=== PATIENT | female | born 1935 | race Caucasian/White ===

== ENCOUNTER 2018-01-16 05:39 | Observation (INO) ==
--- NOTE | 2018-01-16 05:57 | ED ---
HPI General Chief complaint: Neuro Symptoms/Deficit Stated complaint: medical Time Seen by Provider: 01/16/18 05:50 Source: patient and EMS Mode of arrival: EMS Limitations: physical limitation (Wheelchair bound) History of Present Illness HPI narrative: 82-year-old female patient from a assisted care facility, has previous history of CVA, is wheelchair bound, diabetic, seen recently for hypoglycemic episode, here today because she was being aroused by facility staff when she appeared to have slurred speech. Patient states that she just feels generally weak. She also states that she feels like she may have some shortness of breath. She has history of COPD. She denies any chest pains, fevers, vomiting, focal numbness or weakness, or other issues. Patient was last seen normal at 11 PM last night. Related Data Home Medications Medication Instructions Recorded Confirmed aspirin 325 mg PO DAILY 01/12/18 01/16/18 atenolol 25 mg PO DAILY 01/12/18 01/16/18 coenzyme Q10 [Co Q-10] 10 mg PO DAILY 01/12/18 01/16/18 glipizide 10 mg PO DAILY 01/12/18 01/16/18 levothyroxine [Synthroid] 88 mcg PO DAILY 01/12/18 01/16/18 omeprazole 20 mg PO DAILY 01/12/18 01/16/18 potassium chloride [Klor-Con 10] 10 meq PO BID 01/12/18 01/16/18 rosuvastatin 10 mg PO HS 01/12/18 01/16/18 valsartan 80 mg PO DAILY 01/12/18 01/16/18 Lasix 40 mg PO DAILY 01/16/18 01/16/18 magnesium oxide 400 mg PO BID 01/16/18 01/16/18 pioglitazone 30 mg PO DAILY 01/16/18 01/16/18 sertraline [Zoloft] 50 mg PO DAILY 01/16/18 01/16/18 sitagliptin-metformin [Janumet] 1 tab PO BID 01/16/18 01/16/18 Allergies Allergy/AdvReac Type Severity Reaction Status Date / Time nystatin Allergy Intermediate Itching Verified 01/16/18 05:49 Penicillins Allergy Intermediate Rash Verified 01/16/18 05:49 Review of Systems Except as stated in HPI: all other systems reviewed are negative PMFSH Medical History Medical History Anemia (Acute) Anxiety (Acute) CVA (cerebral vascular accident) (Acute) Candidiasis (Acute) Candidiasis of breast (Acute) Constipation (Acute) Depression (Acute) Diabetes (Acute) GERD (gastroesophageal reflux disease) (Acute) HBP (high blood pressure) (Acute) Hyperlipemia (Acute) Hypokalemia (Acute) Hypothyroidism (Acute) Magnesium deficiency (Acute) Surgical History Surgical History Hx of appendectomy (Acute) Hx of tonsillectomy (Acute) Social History Social History Substance History: No History of Abuse Second Hand Smoke Exposure: No Smoking Status: Former smoker Tobacco Type: Cigarettes How Often Do You Have a Drink Containing Alcohol: Never Recent Travel in [facility] within the Last 8 Weeks: No Recent Out of Country Travel within the Last 8 Weeks: No Immunization History Tetanus Immunization: Unsure Hx Influenza Vaccine This Season: No Exam Narrative Exam Narrative: GENERAL: Well-developed elderly obese female patient currently and moderate distress. Awake, alert, oriented 3. SKIN: Focused skin assessment warm/dry. HEAD: Atraumatic. Normocephalic. EYES: Pupils equal and round. No scleral icterus. No injection or drainage. ENT: No nasal bleeding or discharge. Mucous membranes pink and moist. NECK: Trachea midline. No JVD. CARDIOVASCULAR: Regular rate and rhythm. No murmur appreciated. RESPIRATORY: No accessory muscle use. Clear to auscultation. Breath sounds equal bilaterally. GASTROINTESTINAL: Abdomen soft, obese, non-tender, nondistended. Hepatic and splenic margins not palpable. MUSCULOSKELETAL: No obvious deformities. No clubbing. No cyanosis. Bilateral pitting edema of the legs with erythema both legs. NEUROLOGICAL: Awake and alert. No obvious cranial nerve deficits. No upper extremity pronator drift but fairly decreased strength in both legs. Normal speech. Mild aphasia. PSYCHIATRIC: Appropriate mood and affect; insight and judgment normal. Course Initial Documented Vital Signs Temperature 98.7 F 01/16/18 05:42 Pulse Rate 75 01/16/18 05:42 Respiratory Rate 18 01/16/18 05:42 Blood Pressure 135/86 01/16/18 05:42 Pulse Oximetry 98 01/16/18 05:42 Last Documented Vital Signs Temperature 98.7 F 01/16/18 05:42 Pulse Rate 78 01/16/18 06:42 Respiratory Rate 18 01/16/18 06:42 Blood Pressure 137/77 01/16/18 06:42 Pulse Oximetry 99 01/16/18 06:42 Medical Decision Making Differential Diagnosis Differential Diagnosis: Sepsis versus dehydration versus TIA/CVA Lab Data Lab results reviewed: Yes I reviewed the patient's lab results. Result diagrams: 01/16/18 06:00 01/16/18 06:00 Lab Results 01/16/18 01/16/18 01/16/18 Range/Units 06:00 06:00 06:00 WBC 7.4 (4.0-11.0) th/mm3 RBC 3.48 L (4.00-5.30) mil/mm3 Hgb 10.5 L (11.6-15.3) gm/dL Hct 32.1 L (35.0-46.0) % MCV 92.2 (80.0-100.0) fL MCH 30.2 (27.0-34.0) pg MCHC 32.8 (32.0-36.0) % RDW 16.9 (11.6-17.2) % Plt Count 212 (150-450) th/mm3 MPV 8.4 (7.0-11.0) fL Neut % (Auto) 64.2 (16.0-70.0) % Lymph % (Auto) 19.3 (9.0-44.0) % Kidder % (Auto) 8.5 H (0.0-8.0) % Eos % (Auto) 7.4 H (0.0-4.0) % Baso % (Auto) 0.6 (0.0-2.0) % Neut # (Auto) 4.7 (1.8-7.7) th/mm3 Lymph # (Auto) 1.4 (1.0-4.8) th/mm3 Kidder # (Auto) 0.6 (0.0-0.9) th/mm3 Eos # (Auto) 0.5 H (0.0-0.4) th/mm3 Baso # (Auto) 0.0 (0.0-0.2) th/mm3 WBC Differential . Differential Comment Auto diff final PT 12.7 H (9.8-11.6) sec INR 1.3 Ratio APTT 30.9 H (24.3-30.1) sec Sodium 140 (136-145) meq/L Potassium 4.6 (3.5-5.1) meq/L Chloride 110 H (98-107) meq/L Carbon Dioxide 20.7 L (21.0-32.0) meq/L Anion Gap 9 (5-15) meq/L BUN 19 H (7-18) mg/dL Creatinine 1.37 H (0.50-1.00) mg/dL Estimated GFR 37 L (>89) mL/min Random Glucose 105 (74-106) mg/dL Calcium 8.6 (8.5-10.1) mg/dL Magnesium 1.8 (1.5-2.5) mg/dL Total Bilirubin 0.8 (0.2-1.0) mg/dL AST 13 L (15-37) U/L ALT 15 (10-53) U/L Alkaline Phosphatase 119 H (45-117) U/L Total Creatine Kinase 23 L (26-192) U/L Troponin I Less than 0.02 L (0.02-0.05) ng/mL Total Protein 6.3 L D (6.4-8.2) g/dL Albumin 3.5 (3.4-5.0) g/dL Urine Color (Yellw/Straw) Urine Clarity (Clear) Urine pH (5.0-8.5) Ur Specific [place] (1.002-1.035) Urine Protein (Neg-Trace) mg/dL Urine Glucose (UA) (Negative) mg/dL Urine Ketones (Negative) mg/dL Urine Occult Blood (Negative) Urine Nitrate (Negative) Urine Bilirubin (Negative) Urine Urobilinogen (Less than 2) mg/dL Ur Leukocyte Esterase (Negative) Urine RBC (0-3) /hpf Urine WBC (0-5) /hpf Ur Squamous Epith Cells (0-5) /hpf Urine Bacteria (None) /hpf Hyaline Casts (0-3) /lpf Micro UA Comment Urine Culture Comments Blood Type Blood Type Recheck Antibody Screen 01/16/18 01/16/18 Range/Units 06:00 06:38 WBC (4.0-11.0) th/mm3 RBC (4.00-5.30) mil/mm3 Hgb (11.6-15.3) gm/dL Hct (35.0-46.0) % MCV (80.0-100.0) fL MCH (27.0-34.0) pg MCHC (32.0-36.0) % RDW (11.6-17.2) % Plt Count (150-450) th/mm3 MPV (7.0-11.0) fL Neut % (Auto) (16.0-70.0) % Lymph % (Auto) (9.0-44.0) % Kidder % (Auto) (0.0-8.0) % Eos % (Auto) (0.0-4.0) % Baso % (Auto) (0.0-2.0) % Neut # (Auto) (1.8-7.7) th/mm3 Lymph # (Auto) (1.0-4.8) th/mm3 Kidder # (Auto) (0.0-0.9) th/mm3 Eos # (Auto) (0.0-0.4) th/mm3 Baso # (Auto) (0.0-0.2) th/mm3 WBC Differential Differential Comment PT (9.8-11.6) sec INR Ratio APTT (24.3-30.1) sec Sodium (136-145) meq/L Potassium (3.5-5.1) meq/L Chloride (98-107) meq/L Carbon Dioxide (21.0-32.0) meq/L Anion Gap (5-15) meq/L BUN (7-18) mg/dL Creatinine (0.50-1.00) mg/dL Estimated GFR (>89) mL/min Random Glucose (74-106) mg/dL Calcium (8.5-10.1) mg/dL Magnesium (1.5-2.5) mg/dL Total Bilirubin (0.2-1.0) mg/dL AST (15-37) U/L ALT (10-53) U/L Alkaline Phosphatase (45-117) U/L Total Creatine Kinase (26-192) U/L Troponin I (0.02-0.05) ng/mL Total Protein (6.4-8.2) g/dL Albumin (3.4-5.0) g/dL Urine Color Yellow (Yellw/Straw) Urine Clarity Clear (Clear) Urine pH 5.0 (5.0-8.5) Ur Specific [place] 1.009 (1.002-1.035) Urine Protein Negative (Neg-Trace) mg/dL Urine Glucose (UA) Negative (Negative) mg/dL Urine Ketones Negative (Negative) mg/dL Urine Occult Blood Negative (Negative) Urine Nitrate Negative (Negative) Urine Bilirubin Negative (Negative) Urine Urobilinogen Less than 2 (Less than 2) mg/dL Ur Leukocyte Esterase Negative (Negative) Urine RBC 1 (0-3) /hpf Urine WBC 1 (0-5) /hpf Ur Squamous Epith Cells 1 (0-5) /hpf Urine Bacteria Rare H (None) /hpf Hyaline Casts 1 (0-3) /lpf Micro UA Comment Culture not ind Urine Culture Comments Culture not ind Blood Type B Positive Blood Type Recheck Required Antibody Screen Negative Imaging Data Attestation: I personally reviewed and interpreted this imaging study as follows : Radiologist's impression: Chest X-Ray 01/16/18 05:50 CONCLUSION: Mild to moderate cardiomegaly with no definite pulmonary edema. Head CT 01/16/18 05:50 CONCLUSION: 1. No acute hemorrhage or mass effect. 2. The study is mildly degraded by motion artifact. Discharge Plan Discharge Disposition Patient Disposition: 30 Still Patient Discharge Details Diagnosis: Transient cerebral ischemia Physicians Team ED Provider: Samantha Campos Primary Care Provider: Virginia Carroll Rxs /Orders / Referrals /Forms Prescriptions: No Action pioglitazone 30 mg Tablet 30 mg PO DAILY RF: 0 sertraline [Zoloft] 50 mg Tablet 50 mg PO DAILY RF: 0 sitagliptin-metformin [Janumet] 50-1,000 mg Tablet 1 tab PO BID RF: 0 magnesium oxide 400 mg Capsule 400 mg PO BID RF: 0 Lasix 40 mg PO DAILY RF: 0 aspirin 325 mg Tablet 325 mg PO DAILY RF: 0 glipizide 10 mg Tablet 10 mg PO DAILY RF: 0 atenolol 25 mg Tablet 25 mg PO DAILY RF: 0 coenzyme Q10 [Co Q-10] 10 mg Capsule 10 mg PO DAILY RF: 0 valsartan 80 mg Tablet 80 mg PO DAILY RF: 0 potassium chloride [Klor-Con 10] 10 mEq Tablet Extended Release 10 meq PO BID RF: 0 levothyroxine [Synthroid] 88 mcg Tablet 88 mcg PO DAILY RF: 0 omeprazole 20 mg Capsule,Delayed Release(Dr/Ec) 20 mg PO DAILY RF: 0 rosuvastatin 10 mg Tablet 10 mg PO HS RF: 0 Discharge Interventions Interventions: Vital Signs Last Done: 01/16/18 06:42 Status ED Status: With Doctor
--- NOTE | 2018-01-16 06:20 | CT ---
EXAM DATE: 01/16/2018 6:17 AM EDT AGE/SEX: 82 years / Female INDICATIONS: Slurred speech and weakness. CLINICAL DATA: This is the patient's initial encounter. Patient reports that signs and symptoms have been present for 1 day and indicates a pain score of 0/10. MEDICAL/SURGICAL HISTORY: Cerebrovascular disease. Hypertension. Chronic obstructive pulmonary di sease. Diabetes GERD Appendectomy. Tonsillectomy. RADIATION DOSE: 33.72 CTDI (mGy) COMPARISON: No prior exams available for comparison. TECHNIQUE: CT of the head without contrast. Using automated exposure control and adjustment of the mA and/or kV according to patient size, radiation dose was kept as low as reasonably achievable to ob tain optimal diagnostic quality images. DICOM format image data is available electronically for revi ew and comparison. FINDINGS: There is mild motion artifact. Cerebrum: The ventricles are normal for age with mild to moderate atrophic change. No evidence of mi dline shift, mass lesion, hemorrhage or acute infarction. No extraaxial fluid collections are seen. Posterior Fossa: The cerebellum and brainstem are intact. The 4th ventricle is midline. The cerebe llopontine angle is unremarkable. Extracranial: The visualized portion of the orbits is intact. Skull: The calvaria is intact. No evidence of skull fracture. CONCLUSION: 1. No acute hemorrhage or mass effect. 2. The study is mildly degraded by motion artifact. Electronically signed by: Nima Garcia MD 01/16/2018 6:19 AM EDT
[2018-01-16 06:21] LABS: Baso % (Auto) 0.6 % (0.0-2.0); Eos # (Auto) 0.5 th/mm3 (0.0-0.4); Eos % (Auto) 7.4 % (0.0-4.0); Hematocrit 32.1 % (35.0-46.0); Hemoglobin 10.5 gm/dL (11.6-15.3); Lymph # (Auto) 1.4 th/mm3 (1.0-4.8); Lymph % (Auto) 19.3 % (9.0-44.0); Mean Corpuscular HGB Conc 32.8 % (32.0-36.0); Mean Corpuscular Hemoglobin 30.2 pg (27.0-34.0); Mean Corpuscular Volume 92.2 fL (80.0-100.0); Mean Platelet Volume 8.4 fL (7.0-11.0); Mono # (Auto) 0.6 th/mm3 (0.0-0.9); Mono % (Auto) 8.5 % (0.0-8.0); Neut # (Auto) 4.7 th/mm3 (1.8-7.7); Neut % (Auto) 64.2 % (16.0-70.0); Platelet Count 212 th/mm3 (150-450); Red Blood Count 3.48 mil/mm3 (4.00-5.30); Red Cell Distribution Width 16.9 % (11.6-17.2); White Blood Count 7.4 th/mm3 (4.0-11.0)
--- NOTE | 2018-01-16 06:21 | XR ---
EXAM DATE: 01/16/2018 6:11 AM EDT AGE/SEX: 82 years / Female INDICATIONS: Shortness of breath CLINICAL DATA: This is the patient's initial encounter. Patient reports that signs and symptoms have been present for 1 day and indicates a pain score of 0/10. MEDICAL/SURGICAL HISTORY: None. None. COMPARISON: [facility] [place], CHEST 1V SINGLE AP, 01/12/2018. . FINDINGS: A single AP portable erect view the chest was obtained and demonstrates mild to moderate cardiomegaly with no confluent infiltrates or effusions. The bony thorax remains intact with multiple overlying e lectrocardiogram leads. CONCLUSION: Mild to moderate cardiomegaly with no definite pulmonary edema. Electronically signed by: Nima Garcia MD 01/16/2018 6:20 AM EDT
[2018-01-16 06:33] LABS: Activated Partial Thrombo Time 30.9 sec (24.3-30.1); INR 1.3 Ratio; Prothrombin Time 12.7 sec (9.8-11.6)
[2018-01-16 06:49] LABS: Alanine Aminotransferase 15 U/L (10-53); Albumin 3.5 g/dL (3.4-5.0); Anion Gap 9 meq/L (5-15); Aspartate Aminotransferase 13 U/L (15-37); Blood Urea Nitrogen 19 mg/dL (7-18); Calcium 8.6 mg/dL (8.5-10.1); Carbon Dioxide 20.7 meq/L (21.0-32.0); Chloride 110 meq/L (98-107); Glomerular Filtration Rate 37 mL/min (>89); Glucose,Random 105 mg/dL (74-106); Magnesium 1.8 mg/dL (1.5-2.5); Potassium 4.6 meq/L (3.5-5.1); Sodium 140 meq/L (136-145)
[2018-01-16 06:53] LABS: Alkaline Phosphatase 119 U/L (45-117); Total Protein 6.3 g/dL (6.4-8.2)
[2018-01-16 07:17] LABS: Creatine Kinase 23 U/L (26-192)
[2018-01-16 07:28] LABS: Bacteria,Urine Rare /hpf; Bilirubin,Urine Negative (Negative); Color,Urine Yellow (Yellw/Straw); Glucose,Urine (UA) Negative (Negative); Hyaline Casts,Urine 1 /lpf (0-3); Leukocyte Esterase,Urine Negative (Negative); Nitrite,Urine Negative (Negative); Specific Gravity,Urine 1.009 (1.002-1.035); Squamous Epithelial Cell,Urine 1 /hpf (0-5)
[2018-01-16 07:32] LABS: Clarity,Urine Clear (Clear)
[2018-01-16] MEDS ORDERED: Temazepam 15 MG Capsule PO PRN (08:13)
[2018-01-16] MEDS ORDERED: Bisacodyl 10 MG Supp RECTAL PRN (08:13)
[2018-01-16] MEDS ORDERED: Sod Chloride 0.9% Inj 1,000 ML IV.CONT SCH (08:15)
[2018-01-16] MEDS: Senna/Docusate Sodium 8.6/50 MG Tablet PO SCH ×2 (09:18→21:13)
--- NOTE | 2018-01-16 10:42 | MB ---
cc: Albino Loja MD DATE: 01/16/2018 HISTORY OF PRESENT ILLNESS: The patient is an 82-year-old right-handed woman, [id number], with a history [id number] diabetes, hypercholesterolemia, atrial fibrillation in the past, hypothyroidism, melanoma on her scan, but no mets. She has been in a wheelchair for the last 14 years after she hurt her ankle. She is not sure why, not due to pain. She lives in assisted living. Her son evidently from alcoholism. She had some depression. She comes in because she has been weak all over. She was in the hospital just a few days ago, saying she was weak all over, and evidently had a hypoglycemic episode. She was aroused by facility staff. They thought she had some slurred speech. She did not note that herself. There is a history of COPD. MEDICATIONS AT HOME: 1. She is on 325 aspirin. 2. Atenolol. 3. Coenzyme Q10. 4. Glipizide. 5. Synthroid. 6. Omeprazole. 7. Rosuvastatin. 8. Valsartan. 9. Lasix. 10. Zoloft 50 a day. 11. Janumet. 12. Magnesium oxide. ALLERGIES: NYSTATIN AND PENICILLIN. PAST MEDICAL HISTORY: Written down as stroke, candidiasis, anxiety, anemia, constipation, depression, non-insulin diabetes, high blood pressure, hyperlipidemia, hypokalemia, hypothyroidism, magnesium deficiency. SOCIAL HISTORY: Not a smoker or drinker. Lives in assisted living. FAMILY HISTORY: Negative for cancer, seizure, stroke. REVIEW OF SYSTEMS: She denied to me any hypertension, PA, renal, hepatic, pulmonary disease, although obviously some COPD. No history of lupus, ulcer, seizure. She denied any history of stroke, though it is written in her chart here. She does not have an old chart here from the [facility] system. She was here on 01/12/2018, although I do not see a doctor's note from that. PHYSICAL EXAMINATION: VITAL SIGNS: Afebrile, 76, 18, 116/65. NECK: There are no carotid bruits. HEART: Regular rate and rhythm. I do not detect a murmur. EKG and telemetry looks to be atrial flutter. NEUROLOGIC: Pupils are equal. Visual sargent are full. Extraocular movements intact without nystagmus. Face is symmetric with normal sensation. Tongue was midline. There is no drift. She has normal strength in upper and lower extremities bilaterally including iliopsoas, quadriceps, tibialis anterior, gastroc. She got some erythema to the distal legs bilaterally and some edema there also, about 1+ bilateral distal lower extremities and ankles. Pinprick was intact throughout including the toes, face and arms and hands bilaterally. DTRs are absent throughout. She is not ataxic on donwqp-lz-lian or hlo-jq-ctlatc. Speech is slow. She is not aphasic. Knew the month and the year. LABORATORY DATA: CBC is normal. UA is negative. Basic metabolic profile, creatinine 1.37, otherwise normal. Glucose 114. LFTs normal. Troponin negative. Coags were normal. CAT scan of the brain done on this admission is negative. Review of the films does appear to be normal. Chest x-ray: Some cardiomegaly. ASSESSMENT AND PLAN: What appears to be some atrial flutter and she should be anticoagulated. Her CHADS score is high enough. We will check an MRI of the brain. Eliquis could be started by the med team. I would stop her aspirin. Consider having Cardiology see her for the atrial fibrillation. Check an echo and MRI, some additional blood work. Consult physical therapy. It is unclear to me why she is not actually walking for the last 14 years and she does not know either, but she has good strength in her legs. Also, check her LDL. MD DEVIN Kendall/verena/nancy , 09:49 AM , 09:58 AM
[2018-01-16] MEDS ORDERED: Gadobutrol PF 10 MMOL/10 ML Vial (for RAD) IV.SIG ONE (11:48)
--- NOTE | 2018-01-16 11:52 | MR ---
EXAM DATE: 01/16/2018 11:49 AM EDT AGE/SEX: 82 years / Female INDICATIONS: Slurred speech. CLINICAL DATA: This is the patient's subsequent encounter. Patient reports that signs and symptoms h ave been present for 2 days and indicates a pain score of 0/10. MEDICAL/SURGICAL HISTORY: Diabetes mellitus type II. Hypertension. Hypothyroidism. Appendecto my. Tonsillectomy. COMPARISON: No prior exams available for comparison. TECHNIQUE: 3D [id number] MRA was performed. Source images, multiplanar STS MIP, and 3D volum e MIP reconstructions were reviewed. FINDINGS: There is excellent visualization of the major intracranial arteries out to the second-order branch ve ssels. There is no evidence for aneurysm, vessel truncation or stenosis, and no evidence for vascula r malformation. There is a patent right posterior communicating artery. CONCLUSION: 1. Unremarkable MRA of the brain. Electronically signed by: Paco Dubois MD 01/16/2018 11:51 AM EDT
--- NOTE | 2018-01-16 11:54 | MR ---
EXAM DATE: 01/16/2018 11:49 AM EDT AGE/SEX: 82 years / Female INDICATIONS: . Slurred speech. CLINICAL DATA: This is the patient's subsequent encounter. Patient reports that signs and symptoms h ave been present for 2 days and indicates a pain score of 0/10. MEDICAL/SURGICAL HISTORY: Diabetes mellitus type II. Hypothyroidism. Hypertension. Appendecto my. Tonsillectomy. COMPARISON: No prior exams available for comparison. TECHNIQUE: 10 ml Gadavist (gadobutrol) contrast infused MRA (single exam dose) of the extracranial circulation was performed using a neurovascular coil. Postprocessing was performed, including rotati ng sub-volume maximum intensity projections of each carotid artery, rotating full-volume maximum inte nsity projections of both carotid arteries, sagittal and coronal sliding thin-slab reformations of ea ch carotid artery, and left oblique sliding thin-slab reformation through the aortic arch to include the origin of the arch branch vessels. FINDINGS: Aortic Arch : There is a three-vessel origin of the great vessels from the aorta. No evidence of o stial narrowing. Right Carotid : The common carotid artery is intact. The carotid bulb has a normal configuration wi thout ulceration or narrowing. The internal carotid artery lumen is smooth without stenosis. The ex ternal carotid artery is intact. Left Carotid : The common carotid artery is intact. The carotid bulb has a normal configuration wit hout ulceration or narrowing. The internal carotid artery lumen is smooth without stenosis. The ext ernal carotid artery is intact. Vertebrals : The vertebral arteries have a symmetric diameter. No stenotic lesions are seen. CONCLUSION: 1. Unremarkable MRA of the carotids. Percent stenosis is calculated using the diameter of the stenotic region over the diameter of the nor mal distal internal carotid artery Electronically signed by: Paco Dubois MD 01/16/2018 11:53 AM [facility]
--- NOTE | 2018-01-16 12:13 | MR ---
EXAM DATE: 01/16/2018 11:57 AM EDT AGE/SEX: 82 years / Female INDICATIONS: Slurred speech. CLINICAL DATA: This is the patient's subsequent encounter. Patient reports that signs and symptoms h ave been present for 2 days and indicates a pain score of 0/10. MEDICAL/SURGICAL HISTORY: Diabetes mellitus type II. Hypothyroidism. Hypertension. Appendecto my. Tonsillectomy. [place] [facility] [place]. . TECHNIQUE: Multiplanar, multisequence examination of the brain was performed without and with 10 ml G adavist (gadobutrol) contrast as a single exam dose. FINDINGS: Cerebrum: The ventricles and cortical sulci are widened. There are some expansion of the extra axial spaces. No evidence of midline shift, hemorrhage or acute infarction. There is a 1 cm extra-axial mass seen in the anterior right frontal region. This enhances and likely represents a meningioma. No underlying mass effect is seen. No extraaxial fluid collections are seen. The pituitary gland and novoa prasellar cistern are normal in configuration. White Matter: There are focal and confluent areas of increased signal seen in the cerebral and ponti ne white matter. Posterior Fossa: The cerebellum and brainstem are intact. The 4th ventricle is midline. The cerebel lopontine angle is unremarkable. The cerebellar tonsils are normal in position. Diffusion Imaging: No focal areas of restricted diffusion are seen. No evidence of acute infarction . Extracranial: The visualized portions of the orbits and paranasal sinuses are unremarkable. Post Contrast: There is enhancement of the presumed meningioma at the anterior right frontal lobe. O therwise, no abnormal areas of parenchymal or dural enhancement. No evidence of blood-brain barrier breakdown. CONCLUSION: 1. No acute abnormality is seen. 2. Atrophy. 3. Areas of demyelination. This is nonspecific. It may be secondary to small vessel ischemic change. 4. 1 cm suspected meningioma without mass effect at the anterior right frontal region. Electronically signed by: Jeremiah Gastelum MD 01/16/2018 12:11 PM EDT
--- NOTE | 2018-01-16 13:43 | ECG ---
Date Performed: 01/16/2018 Time Performed: 05:44:24 PTAGE: 82 years EKG: ATRIAL FIBRILLATION LOW QRS VOLTAGE IN EXTREMITY LEADS POSSIBLE ANTERIOR MYOCARDIAL INFARCT ION INFERIOR MYOCARDIAL INFARCTION ABNORMAL ECG Since the PREVIOUS TRACING , no significant change noted PREVIOUS TRACIN01/12/2018 10.21 DOCTOR: Orlando Templeton Interpretating Date/Time 01/16/2018 13:42:04
[2018-01-16 14:39] LABS: Chol/HDL Ratio 1.85 Ratio; HDL Cholesterol 51.7 mg/dL (40.0-60.0); Thyroid Stimulating Hormone 3.14 uIU/mL (0.358-3.740)
[2018-01-16 14:58] LABS: Vitamin B12 338 pg/mL (193-986)
[2018-01-16] MEDS ORDERED: Dextrose 50% in Water 50 ML Vial IV.PUSH PRN (15:10)
--- NOTE | 2018-01-16 15:11 | P.HP ---
History of Present Illness Service: Hospitalist Primary Care Physician: Virginia Carroll MD Chief Complaint: Slurred speech History of Present Illness: Ms. Gupta is a pleasant morbidly obese 82-year-old female with a history of atrial fibrillation, hypothyroidism, hyperlipidemia, diabetes mellitus who presented to the emergency department from assisted living facility due to slurred speech. Patient also reports that she was not able to move from her bed at all. Normally she is able to transfer herself from her bed to the commode and short distance like that. Overall she has been feeling much weaker than her baseline. She denies any chest pain, shortness of breath, fever or chills. Denies any changes in bowel or bladder habits. At the time of this interview, patient reports baseline speech. Her daughter is at bedside. They both deny any focal neurological deficit. However she complains of persistent generalized weakness that is worse than her baseline. - Diagnosis (1) Generalized weakness (2) Morbidly obese (3) Diabetes mellitus Inpatient Certification: I certify that the inpatient services were ordered in accordance with Medicare regulations governing the order. This includes certification that hospital inpatient services are reasonable and necessary and in the case of services not specified as inpatient-only under 42 CFR 419.22(n), that they are appropriately provided as inpatient services in accordance to with the 2-midnight benchmark under 43 CFR 412.3(e) Review of Systems All other systems reviewed negative except as stated in HPI [facility] - History History Provided By: Patient, Medical Record, Grader Tender / EMT - Medical History Medical History: Medical History (Last Reviewed 01/16/18 @ 09:14 by Miguelangel Barone) Anemia Anxiety CVA (cerebral vascular accident) Candidiasis Candidiasis of breast Constipation Depression Diabetes GERD (gastroesophageal reflux disease) HBP (high blood pressure) Hyperlipemia Hypokalemia Hypothyroidism Magnesium deficiency - Surgical History Surgical History: Surgical History (Last Reviewed 01/16/18 @ 09:14 by Miguelangel Barone) Hx of appendectomy Hx of tonsillectomy - Tobacco History Second Hand Smoke Exposure: No Smoking Status: Former smoker Tobacco Type: Cigarettes - Alcohol History How Often Do You Have a Drink Containing Alcohol: Never - Substance Use History Substance History: No History of Abuse - Travel History Recent Travel in the [place] Within the Last 8 Weeks: No Recent Travel Out of the Country Within the Last 8 Weeks: No - Immunization History Tetanus Immunization: Unsure Hx Influenza Vaccine This Season: No Medications and Allergies Active Medications: Active Medications Al Hydroxide/Mg Hydroxide (Milk Of Magnesia Liq) 30 ml PO Q12H PRN PRN Reason: Mild Constipation Apixaban (Eliquis) 5 mg PO BID [facility] Bisacodyl (Dulcolax Supp) 10 mg RECTAL DAILY PRN PRN Reason: SEVERE CONSITIPATION Lactulose (Lactulose Liq) 30 ml PO DAILY PRN PRN Reason: SEVERE CONSITIPATION Metoprolol Tartrate (Lopressor) 25 mg PO BID [facility] Senna/Docusate Sodium (Lupe-Colace) 1 tab PO BID [facility] Last Admin: 01/16/18 09:18 Dose: 1 tab Sennosides (Senokot) 17.2 mg PO Q12H PRN PRN Reason: Moderate Constipation Sodium Chloride (Ns Flush) 2 ml IV.FLUSH PRN PRN PRN Reason: FLUSH AFTER USING IV ACCESS Last Admin: 01/16/18 09:18 Dose: 2 ml Temazepam (Restoril) 15 mg PO HS PRN PRN Reason: INSOMNIA Allergies Allergy/AdvReac Type Severity Reaction Status Date / Time nystatin Allergy Intermediate Itching Verified 01/16/18 05:49 Penicillins Allergy Intermediate Rash Verified 01/16/18 05:49 Home Medications Medication Instructions Recorded Confirmed Type aspirin 325 mg PO DAILY 01/12/18 01/16/18 History atenolol 25 mg PO DAILY 01/12/18 01/16/18 History coenzyme Q10 [Co Q-10] 10 mg PO DAILY 01/12/18 01/16/18 History glipizide 10 mg PO DAILY 01/12/18 01/16/18 History levothyroxine [Synthroid] 88 mcg PO DAILY 01/12/18 01/16/18 History omeprazole 20 mg PO DAILY 01/12/18 01/16/18 History potassium chloride [Klor-Con 10] 10 meq PO BID 01/12/18 01/16/18 History rosuvastatin 10 mg PO HS 01/12/18 01/16/18 History valsartan 80 mg PO DAILY 01/12/18 01/16/18 History Lasix 40 mg PO DAILY 01/16/18 01/16/18 History magnesium oxide 400 mg PO BID 01/16/18 01/16/18 History pioglitazone 30 mg PO DAILY 01/16/18 01/16/18 History sertraline [Zoloft] 50 mg PO DAILY 01/16/18 01/16/18 History sitagliptin-metformin [Janumet] 1 tab PO BID 01/16/18 01/16/18 History Exam Vital signs: Vital Signs 01/16/18 05:42 01/16/18 05:50 01/16/18 06:42 Temperature 98.7 F Pulse Rate 75 78 Respiratory Rate 18 18 Blood Pressure 135/86 137/77 Pulse Oximetry 98 100 99 01/16/18 08:13 01/16/18 09:07 01/16/18 10:00 Temperature 97.8 F 97.9 F Pulse Rate 76 77 74 Respiratory Rate 18 18 Blood Pressure 116/65 137/64 Pulse Oximetry 98 98 01/16/18 12:23 01/16/18 13:45 Temperature 98.1 F 97.8 F Pulse Rate 74 70 Respiratory Rate 20 18 Blood Pressure 130/60 124/77 Pulse Oximetry 100 Intake & Output 01/15/18 01/16/18 01/16/18 18:59 06:59 18:59 Weight 124.738 kg Narrative: GENERAL: Alert, oriented 3, NAD. Morbidly obese. SKIN: No rashes, ecchymoses or lesions. Warm and dry. There is some thickening of skin on her lower abdomen. No erythema noted. HEAD: Atraumatic. Normocephalic. No temporal or scalp tenderness. EYES: Pupils equal round and reactive. No injection or drainage. ENT: Nose without bleeding, purulent drainage or septal hematoma. Airway patent. NECK: Trachea midline. No lymphadenopathy. Supple, nontender, no meningeal signs. CARDIOVASCULAR: Regular rate and rhythm without murmurs, gallops, or rubs. No JVD. RESPIRATORY: Clear to auscultation. Breath sounds equal bilaterally. No wheezes , rales, or rhonchi. GASTROINTESTINAL: Abdomen soft, non-tender, nondistended. No guarding. MUSCULOSKELETAL: Extremities without clubbing, cyanosis, or edema. There is some erythema on her lower extremities which is chronic. NEUROLOGICAL: Awake and alert. Cranial nerves II through XII intact. No focal neurological deficits. Normal speech. Results - Labs CBC & Chem 7: 01/16/18 06:00 01/16/18 06:00 Labs: Laboratory Results - last 24 hr 01/16/18 01/16/18 01/16/18 06:00 06:00 06:00 WBC 7.4 RBC 3.48 L Hgb 10.5 L Hct 32.1 L MCV 92.2 MCH 30.2 MCHC 32.8 RDW 16.9 Plt Count 212 MPV 8.4 Neut % (Auto) 64.2 Lymph % (Auto) 19.3 [place] % (Auto) 8.5 H Eos % (Auto) 7.4 H Baso % (Auto) 0.6 Neut # (Auto) 4.7 Lymph # (Auto) 1.4 [place] # (Auto) 0.6 Eos # (Auto) 0.5 H Baso # (Auto) 0.0 WBC Differential . Differential Comment Auto diff final PT 12.7 H INR 1.3 APTT 30.9 H Sodium 140 Potassium 4.6 Chloride 110 H Carbon Dioxide 20.7 L Anion Gap 9 BUN 19 H Creatinine 1.37 H Estimated GFR 37 L POC Glucose Random Glucose 105 Calcium 8.6 Magnesium 1.8 Total Bilirubin 0.8 AST 13 L ALT 15 Alkaline Phosphatase 119 H Total Creatine Kinase 23 L Troponin I Less than 0.02 L Total Protein 6.3 L D Albumin 3.5 Triglycerides Cholesterol LDL Cholesterol, Calc HDL Cholesterol Cholesterol/HDL Ratio TSH Urine Color Urine Clarity Urine pH Ur Specific [place] Urine Protein Urine Glucose (UA) Urine Ketones Urine Occult Blood Urine Nitrate Urine Bilirubin Urine Urobilinogen Ur Leukocyte Esterase Urine RBC Urine WBC Ur Squamous Epith Cells Urine Bacteria Hyaline Casts Micro UA Comment Urine Culture Comments Rheumatoid Factor Scrn Rheumatoid Factor Titer Blood Type Blood Type Recheck Antibody Screen 01/16/18 01/16/18 01/16/18 06:00 06:38 09:16 WBC RBC Hgb Hct MCV MCH MCHC RDW Plt Count MPV Neut % (Auto) Lymph % (Auto) [place] % (Auto) Eos % (Auto) Baso % (Auto) Neut # (Auto) Lymph # (Auto) [place] # (Auto) Eos # (Auto) Baso # (Auto) WBC Differential Differential Comment PT INR APTT Sodium Potassium Chloride Carbon Dioxide Anion Gap BUN Creatinine Estimated GFR POC Glucose 114 H Random Glucose Calcium Magnesium Total Bilirubin AST ALT Alkaline Phosphatase Total Creatine Kinase Troponin I Total Protein Albumin Triglycerides Cholesterol LDL Cholesterol, Calc HDL Cholesterol Cholesterol/HDL Ratio TSH Urine Color Yellow Urine Clarity Clear Urine pH 5.0 Ur Specific [place] 1.009 Urine Protein Negative Urine Glucose (UA) Negative Urine Ketones Negative Urine Occult Blood Negative Urine Nitrate Negative Urine Bilirubin Negative Urine Urobilinogen Less than 2 Ur Leukocyte Esterase Negative Urine RBC 1 Urine WBC 1 Ur Squamous Epith Cells 1 Urine Bacteria Rare H Hyaline Casts 1 Micro UA Comment Culture not ind Urine Culture Comments Culture not ind Rheumatoid Factor Scrn Rheumatoid Factor Titer Blood Type B Positive Blood Type Recheck Required Antibody Screen Negative 01/16/18 01/16/18 01/16/18 13:08 13:08 13:32 WBC RBC Hgb Hct MCV MCH MCHC RDW Plt Count MPV Neut % (Auto) Lymph % (Auto) [place] % (Auto) Eos % (Auto) Baso % (Auto) Neut # (Auto) Lymph # (Auto) [place] # (Auto) Eos # (Auto) Baso # (Auto) WBC Differential Differential Comment PT INR APTT Sodium Potassium Chloride Carbon Dioxide Anion Gap BUN Creatinine Estimated GFR POC Glucose 110 Random Glucose Calcium Magnesium Total Bilirubin AST ALT Alkaline Phosphatase Total Creatine Kinase Troponin I Total Protein Albumin Triglycerides 63 Cholesterol 96 L LDL Cholesterol, Calc 32 HDL Cholesterol 51.7 Cholesterol/HDL Ratio 1.85 TSH 3.140 Urine Color Urine Clarity Urine pH Ur Specific [place] Urine Protein Urine Glucose (UA) Urine Ketones Urine Occult Blood Urine Nitrate Urine Bilirubin Urine Urobilinogen Ur Leukocyte Esterase Urine RBC Urine WBC Ur Squamous Epith Cells Urine Bacteria Hyaline Casts Micro UA Comment Urine Culture Comments Rheumatoid Factor Scrn Negative Rheumatoid Factor Titer Not Reportable Blood Type Blood Type Recheck Antibody Screen - Imaging Impressions Head MRI 01/16/18 00:00 CONCLUSION: 1. No acute abnormality is seen. 2. Atrophy. 3. Areas of demyelination. This is nonspecific. It may be secondary to small vessel ischemic change. 4. 1 cm suspected meningioma without mass effect at the anterior right frontal region. Chest X-Ray 01/16/18 05:50 CONCLUSION: Mild to moderate cardiomegaly with no definite pulmonary edema. Head CT 01/16/18 05:50 CONCLUSION: 1. No acute hemorrhage or mass effect. 2. The study is mildly degraded by motion artifact. Neck MRA 01/16/18 07:37 CONCLUSION: 1. Unremarkable MRA of the carotids. Percent stenosis is calculated using the diameter of the stenotic region over the diameter of the normal distal internal carotid artery Head MRA 01/16/18 07:39 CONCLUSION: 1. Unremarkable MRA of the brain. Caprinsteffanie VTE Risk Assessment Deniz VTE Risk Assessment: Moderate/High Risk (score >= 2) Deniz Risk Assessment Model: Point Value = 1 Point Value = 2 Point Value = 3 Point Value = 5 Age 41-60 Minor surgery BMI > 25 kg/m2 Swollen legs Varicose veins or History of unexplained or recurrent spontaneous Oral contraceptives or hormone replacement Sepsis (< 1 month) Serious lung disease, including pneumonia (< 1 month) Abnormal pulmonary function Acute myocardial infarction Congestive heart failure (< 1 month) History of inflammatory bowel disease Medical patient at bed rest Age 61-74 Arthroscopic surgery Major open surgery (> 45 min) Laparoscopic surgery (> 45 min) Malignancy Confined to bed (> 72 hours) Immobilizing plaster cast Central venous access Age >= 75 History of VTE Family history of VTE Factor V Leiden Prothrombin [id number] Lupus anticoagulant Anticardiolipin antibodies Elevated serum homocysteine Heparin-induced thrombocytopenia Other congenital or acquired thrombophilia Stroke (< 1 month) Elective arthroplasty Hip, pelvis, or leg fracture Acute spinal cord injury (< 1 month) Prophylaxis Regimen: Total Risk Factor Score Risk Level Prophylaxis Regimen 0-1 Low Early ambulation 2 Moderate Order ONE of the following: *Sequential Compression Device (SCD) *Heparin 5000 units SQ BID 3-4 Higher Order ONE of the following medications: *Heparin 5000 units SQ TID *Enoxaparin/Lovenox 40 mg SQ daily (WT < 150 kg, CrCl > 30 mL/min) *Enoxaparin/Lovenox 30 mg SQ daily (WT < 150 kg, CrCl > 10-29 mL/min) *Enoxaparin/Lovenox 30 mg SQ BID (WT < 150 kg, CrCl > 30 mL/min) AND/OR *Sequential Compression Device (SCD) 5 or more Highest Order ONE of the following medications: *Heparin 5000 units SQ TID (Preferred with Epidurals) *Enoxaparin/Lovenox 40 mg SQ daily (WT < 150 kg, CrCl > 30 mL/min) *Enoxaparin/Lovenox 30 mg SQ daily (WT < 150 kg, CrCl > 10-29 mL/min) *Enoxaparin/Lovenox 30 mg SQ BID (WT < 150 kg, CrCl > 30 mL/min) AND *Sequential Compression Device (SCD) Assessment and Plan - Assessment (1) Generalized weakness Code(s): R53.1 - Weakness Status: Acute (2) Morbidly obese Code(s): E66.01 - Morbid (severe) obesity due to excess calories Status: Acute (3) Diabetes mellitus Code(s): E11.9 - Type 2 diabetes mellitus without complications Status: Acute - Plan Ms. Gupta is a pleasant 82-year-old morbidly obese female with a history of hyperlipidemia, diabetes mellitus who presents to the emergency department today due to worsening of her generalized weakness, suspected slurred speech. Neurology was consulted. Possible TIA -Radiological studies including MRI and MRA are largely unremarkable for any acute findings. -Appreciate neurology input. We are waiting for echocardiogram. -Physical therapy recommends home with home health. -Continue apixaban 5 mg twice daily. Also continue Crestor 10 mg nightly. Diabetes mellitus -Patient's blood glucose was in the 110s range. She is on Janumet, glipizide , Pioglitazone at home. -Patient's home regimen is concerning for episodes of hypoglycemia which she had recently. -We will hold off p.o. hypoglycemic medications. Hold off using metformin due to GFR 37. -Upon discharge consider low-dose glimepiride monotherapy for diabetes mellitus. -During this hospitalization we will continue sliding scale insulin only. Hypertension Hyperlipidemia -We will hold off using valsartan. Start amlodipine 5 mg daily. Currently normotensive. -Continue Crestor 10 mg nightly. Atrial fibrillation -DC home medication atenolol. Start metoprolol 25 mg twice daily. -Also start patient on apixaban 5 mg twice daily. Full code. Apixaban. Discharge plan: We admitted patient under observation. Discussed with Obs unit CM who discussed with patient/family. They would like to consider a different SNF other than [facility]. Patient can likely be discharged on 01/17/2018.
[2018-01-16] MEDS: Insulin NovoLOG Aspart Correctional Sugar Inj SQ SCH ×2 (17:15→21:00)
[2018-01-16] MEDS: Metoprolol Tartrate 25 MG Tablet PO SCH (21:13)
[2018-01-17] MEDS: Levothyroxine 88 MCG Tablet PO SCH (07:11)
--- NOTE | 2018-01-17 07:18 | P.PNNEU ---
Subjective Subjective Comments: No acute events reported No headache No chest pain No dyspnea Active Medications: Active Medications Al Hydroxide/Mg Hydroxide (Milk Of Magnesia Liq) 30 ml PO Q12H PRN PRN Reason: Mild Constipation Amlodipine Besylate (Norvasc) 5 mg PO DAILY [facility] Apixaban (Eliquis) 5 mg PO BID [facility] Last Admin: 01/16/18 21:13 Dose: 5 mg Atorvastatin Calcium (Lipitor) 20 mg PO HS [facility] Last Admin: 01/16/18 21:13 Dose: 20 mg Bisacodyl (Dulcolax Supp) 10 mg RECTAL DAILY PRN PRN Reason: SEVERE CONSITIPATION Dextrose (D50w Vial) 50 ml IV.PUSH UNSCH PRN PRN Reason: PER HYPOGLYCEMIA PROTOCOL Glucagon (Glucagon Inj) 1 mg OTHER PRN PRN PRN Reason: for Hypoglycemia Protocol Insulin Aspart (Novolog Insulin Correctional Sugar Inj) 0 unit SQ [facility]; Protocol Last Admin: 01/16/18 21:00 Dose: Not Given Lactulose (Lactulose Liq) 30 ml PO DAILY PRN PRN Reason: SEVERE CONSITIPATION Levothyroxine Sodium (Synthroid) 88 mcg PO DAILY@0600 [facility] Last Admin: 01/17/18 07:11 Dose: 88 mcg Metoprolol Tartrate (Lopressor) 25 mg PO BID [facility] Last Admin: 01/16/18 21:13 Dose: 25 mg Pantoprazole Sodium (Protonix) 20 mg PO DAILY [facility] Senna/Docusate Sodium (Lupe-Colace) 1 tab PO BID [facility] Last Admin: 01/16/18 21:13 Dose: 1 tab Sennosides (Senokot) 17.2 mg PO Q12H PRN PRN Reason: Moderate Constipation Sertraline HCl (Zoloft) 50 mg PO DAILY [facility] Sodium Chloride (Ns Flush) 2 ml IV.FLUSH PRN PRN PRN Reason: FLUSH AFTER USING IV ACCESS Last Admin: 01/16/18 09:18 Dose: 2 ml Temazepam (Restoril) 15 mg PO HS PRN PRN Reason: INSOMNIA Allergies/Adverse Reactions: Allergies Allergy/AdvReac Type Severity Reaction Status Date / Time nystatin Allergy Intermediate Itching Verified 01/16/18 05:49 Penicillins Allergy Intermediate Rash Verified 01/16/18 05:49 Physical Exam Vital signs: Vital Signs 01/16/18 08:13 01/16/18 09:07 01/16/18 10:00 Temperature 97.8 F 97.9 F Pulse Rate 76 77 74 Respiratory Rate 18 18 Blood Pressure 116/65 137/64 Pulse Oximetry 98 98 01/16/18 12:23 01/16/18 13:45 01/16/18 16:00 Temperature 98.1 F 97.8 F Pulse Rate 74 70 76 Respiratory Rate 20 18 Blood Pressure 130/60 124/77 Pulse Oximetry 100 01/16/18 16:58 01/16/18 20:00 01/16/18 20:10 Temperature 98.1 F 97.6 F Pulse Rate 90 95 H 77 Respiratory Rate 16 17 Blood Pressure 116/67 117/73 Pulse Oximetry 98 96 01/16/18 22:00 01/17/18 04:00 Temperature 97.9 F Pulse Rate 97 H 69 Respiratory Rate 16 Blood Pressure 116/70 Pulse Oximetry 95 Intake & Output 01/16/18 01/17/18 01/17/18 18:59 06:59 18:59 Intake Total 221 / 221 Output Total 1300 / 1300 800 / 800 Balance -1300 / -1300 -579 / -579 Weight 124.738 kg Intake: Oral 221 / 221 Output: Urine 800 / 800 Urine Amount (Catheter) 1300 / 1300 Indwelling Urethral Catheter 1300 / 1300 Other: Date of Last Bowel Movement 01/15/18 Narrative: awake alert movign all nad - Urinary Catheter Management Indwelling Urethral Catheter Cath placed during this visit: yes Reason for continuing: Acute urinary retention Insertion date: 01/16/18 Insertion time: 06:39 Objective Laboratory Results - last 24 hr 01/16/18 01/16/18 01/16/18 06:00 06:38 09:16 POC Glucose 114 H Total Bilirubin 0.8 Alkaline Phosphatase 119 H Total Creatine Kinase 23 L Troponin I Less than 0.02 L Total Protein 6.3 L D Triglycerides Cholesterol LDL Cholesterol, Calc HDL Cholesterol Cholesterol/HDL Ratio Vitamin B12 TSH Thyroxine (T4) Urine Color Yellow Urine Clarity Clear Urine pH 5.0 Ur Specific [place] 1.009 Urine Protein Negative Urine Glucose (UA) Negative Urine Ketones Negative Urine Occult Blood Negative Urine Nitrate Negative Urine Bilirubin Negative Urine Urobilinogen Less than 2 Ur Leukocyte Esterase Negative Urine RBC 1 Urine WBC 1 Ur Squamous Epith Cells 1 Urine Bacteria Rare H Hyaline Casts 1 Micro UA Comment Culture not ind Urine Culture Comments Culture not ind Rheumatoid Factor Scrn Rheumatoid Factor Titer 01/16/18 01/16/18 01/16/18 13:08 13:08 13:32 POC Glucose 110 Total Bilirubin Alkaline Phosphatase Total Creatine Kinase Troponin I Total Protein Triglycerides 63 Cholesterol 96 L LDL Cholesterol, Calc 32 HDL Cholesterol 51.7 Cholesterol/HDL Ratio 1.85 Vitamin B12 338 TSH 3.140 Thyroxine (T4) 10.0 Urine Color Urine Clarity Urine pH Ur Specific [place] Urine Protein Urine Glucose (UA) Urine Ketones Urine Occult Blood Urine Nitrate Urine Bilirubin Urine Urobilinogen Ur Leukocyte Esterase Urine RBC Urine WBC Ur Squamous Epith Cells Urine Bacteria Hyaline Casts Micro UA Comment Urine Culture Comments Rheumatoid Factor Scrn Negative Rheumatoid Factor Titer Not Reportable 01/16/18 01/16/18 17:11 20:57 POC Glucose 109 147 H Total Bilirubin Alkaline Phosphatase Total Creatine Kinase Troponin I Total Protein Triglycerides Cholesterol LDL Cholesterol, Calc HDL Cholesterol Cholesterol/HDL Ratio Vitamin B12 TSH Thyroxine (T4) Urine Color Urine Clarity Urine pH Ur Specific [place] Urine Protein Urine Glucose (UA) Urine Ketones Urine Occult Blood Urine Nitrate Urine Bilirubin Urine Urobilinogen Ur Leukocyte Esterase Urine RBC Urine WBC Ur Squamous Epith Cells Urine Bacteria Hyaline Casts Micro UA Comment Urine Culture Comments Rheumatoid Factor Scrn Rheumatoid Factor Titer Review/Management - Review/Management Plan: imp mri/a/a nl labs nl on eliquis aflutter ldl nl tiny r meningioma incidental plan have PT try and stand her not much really going on here new neurowise and can dc neurowise needs wt loss she is worried about left abd hematoma?
[2018-01-17 07:48] LABS: Baso # (Auto) 0.1 th/mm3 (0.0-0.2); Baso % (Auto) 0.8 % (0.0-2.0); Eos # (Auto) 0.5 th/mm3 (0.0-0.4); Eos % (Auto) 6.7 % (0.0-4.0); Hematocrit 33.2 % (35.0-46.0); Lymph # (Auto) 1.1 th/mm3 (1.0-4.8); Lymph % (Auto) 15.9 % (9.0-44.0); Mean Corpuscular Hemoglobin 30.4 pg (27.0-34.0); Mean Corpuscular Volume 92.1 fL (80.0-100.0); Mean Platelet Volume 8.6 fL (7.0-11.0); Mono # (Auto) 0.5 th/mm3 (0.0-0.9); Mono % (Auto) 7.6 % (0.0-8.0); Neut # (Auto) 4.8 th/mm3 (1.8-7.7); Platelet Count 213 th/mm3 (150-450); Red Blood Count 3.61 mil/mm3 (4.00-5.30); Red Cell Distribution Width 17.1 % (11.6-17.2)
[2018-01-17 08:27] LABS: Albumin 3.3 g/dL (3.4-5.0); Anion Gap 10 meq/L (5-15); Aspartate Aminotransferase 11 U/L (15-37); Blood Urea Nitrogen 17 mg/dL (7-18); Calcium 9.1 mg/dL (8.5-10.1); Carbon Dioxide 21.2 meq/L (21.0-32.0); Chloride 111 meq/L (98-107); Glomerular Filtration Rate 39 mL/min (>89); Glucose,Random 109 mg/dL (74-106); Potassium 4.4 meq/L (3.5-5.1); Sodium 142 meq/L (136-145)
[2018-01-17 08:28] LABS: Alanine Aminotransferase 14 U/L (10-53)
[2018-01-17 08:30] LABS: Alkaline Phosphatase 114 U/L (45-117); Total Protein 6.5 g/dL (6.4-8.2)
[2018-01-17] MEDS: Senna/Docusate Sodium 8.6/50 MG Tablet PO SCH ×2 (09:58→23:24)
[2018-01-17] MEDS: Sertraline 50 MG Tablet PO SCH (09:58)
[2018-01-17] MEDS: Pantoprazole Sodium 20 MG DR Tablet PO SCH (09:58)
[2018-01-17] MEDS: Metoprolol Tartrate 25 MG Tablet PO SCH ×2 (09:58→23:23)
[2018-01-17] MEDS: amLODIPine 5 MG Tablet PO SCH (09:58)
[2018-01-17] MEDS: Insulin NovoLOG Aspart Correctional Sugar Inj SQ SCH ×3 (09:59→23:20)
[2018-01-17 11:13] LABS: Anti-Nuclear Antibody Screen Pos (Neg)
--- NOTE | 2018-01-17 11:51 | ECHRPT ---
Indication: CVA/TIA CONCLUSIONS The left ventricular systolic function is moderately reduced with an estimated ejection fraction in the range of 45-50% Moderate concentric left ventricular hypertrophy. No regional wall motion abnormalities are present. The left atrial size is [id number] dilated. The right atrial size is mildly dilated. Mild mitral valve regurgitation. Mild mitral annular calcification. There is moderate tricuspid regurgitation. There is estimated severe pulmonary hypertension present ( > 70 mmHg). Trivial pulmonary valve regurgitation. The inferior vena cava is dilated. There is less than 50% respiratory change in dimension of the inferior vena cava (abnormal). BP: / HR: Rhythm: Sinus MEASUREMENTS (Male / Female) Normal Values Technical Quality:Good 2D ECHO LV Diastolic Diameter PLAX 3.3 cm 4.2 - 5.9 / 3.9 - 5.3 cm LV Systolic Diameter PLAX 2.9 cm IVS Diastolic Thickness 1.7 cm 0.6 - 1.0 / 0.6 - 0.9 cm LVPW Diastolic Thickness 1.7 cm 0.6 - 1.0 / 0.6 - 0.9 cm LV Relative Wall Thickness 1.0 RV Internal Dim ED PLAX 3.8 cm LVOT Diameter 1.8 cm LA Systolic Diameter LX 4.4 cm 3.0 - 4.0 / 2.7 - 3.8 cm LV Ejection Fraction MOD 4C 39.7 % LV Ejection Fraction 4C AL 41.6 % M-MODE Aortic Root Diameter MM 3.1 cm LA Systolic Diameter MM 4.3 cm LA Ao Ratio MM 1.4 AV Cusp Separation MM 2.0 cm DOPPLER AV Peak Velocity 148.0 cm/s AV Peak Gradient 8.8 mmHg LVOT Peak Velocity 95.8 cm/s LVOT Peak Gradient 3.7 mmHg AV Area Cont Eq pk 1.6 cm MV Peak Velocity 176.0 cm/s MV Peak Gradient 12.4 mmHg MV Mean Velocity 74.5 cm/s MV Mean Gradient 3.0 mmHg MV Area PHT 4.4 cm Mitral E Point Velocity 135.0 cm/s Mitral A Point Velocity 54.8 cm/s Mitral E to A Ratio 2.5 TR Peak Velocity 422.0 cm/s TR Peak Gradient 71.2 mmHg Right Atrial Pressure 10.0 mmHg Pulmonary Artery Systolic Pressu 81.2 mmHg Right Ventricular Systolic Press 81.2 mmHg PV Peak Velocity 73.3 cm/s PV Peak Gradient 2.1 mmHg FINDINGS LEFT VENTRICLE The left ventricular systolic function is moderately reduced with an estimated ejection fraction in the range of 40-45%. Moderate concentric left ventricular hypertrophy. No regional wall motion abnormalities are present. RIGHT VENTRICLE Normal right ventricular size and systolic function. LEFT ATRIUM The left atrial size is [id number] dilated. RIGHT ATRIUM The right atrial size is mildly dilated. ATRIAL SEPTUM Normal atrial septal thickness without atrial level shunting by limited color doppler interrogation. AORTA The aortic root and proximal ascending aorta are normal in size on limited imaging. MITRAL VALVE Structurally normal mitral valve. Mild mitral valve regurgitation. Mild mitral annular calcification. AORTIC VALVE Trileaflet aortic valve. No aortic valve stenosis or regurgitation. TRICUSPID VALVE Structurally normal tricuspid valve. There is moderate tricuspid regurgitation. There is estimated severe pulmonary hypertension present ( > 70 mmHg). PULMONARY VALVE Trivial pulmonary valve regurgitation. VESSELS The inferior vena cava is dilated. There is less than 50% respiratory change in dimension of the inferior vena cava (abnormal). PERICARDIUM No pericardial effusion. Mp Gonzalez MD, FACC, FSCAI (Electronically Signed) Final Date:17 January 2018 11:50
--- NOTE | 2018-01-17 12:57 | P.PN ---
Subjective Interval history: Follow up on patient with ?TIA. Patient seen and examined. Patient states she is feeling well. She denies any acute medical complaints. She feels she is at her baseline. She is concerned about persistent swelling in her left abdomen she suffered a fall in May at her NURSING HOME onto her left side. She denies any associated pain or disability. Lengthy discussion regarding anticoagulation for atrial fibrillation. Patient states she has a previous history of GI bleed requiring transfusion while on Xarelto and as a result has been on 325 mg of aspirin only. She is very hesitant to continue Eliquis. She denies previous history of CHF. She denies any cough or sputum production. She denies any chest pain or shortness of breath. She denies any nausea, vomiting or abdominal pain. Patient states she has had several hypoglycemic episodes since changing her diabetic medications. Physical Exam Vital signs: Vital Signs 01/16/18 13:45 01/16/18 16:00 01/16/18 16:58 Temperature 97.8 F 98.1 F Pulse Rate 70 76 90 Respiratory Rate 18 16 Blood Pressure 124/77 116/67 Pulse Oximetry 98 01/16/18 20:00 01/16/18 20:10 01/16/18 22:00 Temperature 97.6 F 97.9 F Pulse Rate 95 H 77 97 H Respiratory Rate 17 16 Blood Pressure 117/73 116/70 Pulse Oximetry 96 95 01/17/18 04:00 01/17/18 10:00 01/17/18 11:05 Temperature 97.9 F Pulse Rate 69 74 Respiratory Rate 18 Blood Pressure 158/67 H Pulse Oximetry 95 Intake & Output 01/16/18 01/17/18 01/17/18 18:59 06:59 18:59 Intake Total 221 / 221 Output Total 1300 / 1300 800 / 800 Balance -1300 / -1300 -579 / -579 Weight 124.738 kg Intake: Oral 221 / 221 Output: Urine 800 / 800 Urine Amount (Catheter) 1300 / 1300 Indwelling Urethral Catheter 1300 / 1300 Other: Date of Last Bowel Movement 01/15/18 Narrative: GENERAL: WDWN Morbidly obese elderly female INAD. Awake and alert. SKIN: No rashes, ecchymoses or lesions. Warm and dry. There is some thickening of skin on her lower abdomen. No erythema noted. HEAD: Atraumatic. Normocephalic. No temporal or scalp tenderness. EYES: Pupils equal round and reactive. No injection or drainage. ENT: Nose without bleeding, purulent drainage or septal hematoma. Airway patent. NECK: Trachea midline. No lymphadenopathy. Supple, nontender, no meningeal signs. CARDIOVASCULAR: Irregular rate and rhythm without murmurs, gallops, or rubs. No JVD. RESPIRATORY: Clear to auscultation. Breath sounds equal bilaterally. No wheezes , rales, or rhonchi. GASTROINTESTINAL: Abdomen soft, non-tender, nondistended. No guarding. + Edematous left lower abdomen with firm subcutaneous nontender mass with dimpling of skin over area. MUSCULOSKELETAL: Extremities without clubbing, cyanosis, or edema. There is some erythema on her lower extremities which is chronic. NEUROLOGICAL: Awake and alert. Cranial nerves II through XII intact. Able to move all extremities spontaneously. No focal neurological deficits. Normal speech. PSYCHIATRIC: Calm and pleasant. Appropriate mood and affect. Normal judgment and insight. - Urinary Catheter Management Indwelling Urethral Catheter Cath placed during this visit: yes Reason for continuing: Acute urinary retention Insertion date: 01/16/18 Insertion time: 06:39 Results - Labs CBC & Chem 7: 01/17/18 06:27 01/17/18 06:27 Laboratory Results - last 24 hr 01/16/18 01/16/18 01/16/18 13:08 13:08 13:08 WBC RBC Hgb Hct MCV MCH MCHC RDW Plt Count MPV Neut % (Auto) Lymph % (Auto) [place] % (Auto) Eos % (Auto) Baso % (Auto) Neut # (Auto) Lymph # (Auto) [place] # (Auto) Eos # (Auto) Baso # (Auto) WBC Differential Differential Comment Sodium Potassium Chloride Carbon Dioxide Anion Gap BUN Creatinine Estimated GFR POC Glucose Random Glucose Calcium Total Bilirubin AST ALT Alkaline Phosphatase Total Protein Albumin Triglycerides 63 Cholesterol 96 L LDL Cholesterol, Calc 32 HDL Cholesterol 51.7 Cholesterol/HDL Ratio 1.85 Vitamin B12 338 TSH 3.140 Thyroxine (T4) 10.0 Rheumatoid Factor Scrn Negative Rheumatoid Factor Titer Not Reportable LIANA Screen Pos H 01/16/18 01/16/18 01/16/18 13:32 17:11 20:57 WBC RBC Hgb Hct MCV MCH MCHC RDW Plt Count MPV Neut % (Auto) Lymph % (Auto) [place] % (Auto) Eos % (Auto) Baso % (Auto) Neut # (Auto) Lymph # (Auto) [place] # (Auto) Eos # (Auto) Baso # (Auto) WBC Differential Differential Comment Sodium Potassium Chloride Carbon Dioxide Anion Gap BUN Creatinine Estimated GFR POC Glucose 110 109 147 H Random Glucose Calcium Total Bilirubin AST ALT Alkaline Phosphatase Total Protein Albumin Triglycerides Cholesterol LDL Cholesterol, Calc HDL Cholesterol Cholesterol/HDL Ratio Vitamin B12 TSH Thyroxine (T4) Rheumatoid Factor Scrn Rheumatoid Factor Titer LIANA Screen 01/17/18 01/17/18 01/17/18 06:27 06:27 09:27 WBC 7.0 RBC 3.61 L Hgb 11.0 L Hct 33.2 L MCV 92.1 MCH 30.4 MCHC 33.0 RDW 17.1 Plt Count 213 MPV 8.6 Neut % (Auto) 69.0 Lymph % (Auto) 15.9 [place] % (Auto) 7.6 Eos % (Auto) 6.7 H Baso % (Auto) 0.8 Neut # (Auto) 4.8 Lymph # (Auto) 1.1 [place] # (Auto) 0.5 Eos # (Auto) 0.5 H Baso # (Auto) 0.1 WBC Differential . Differential Comment Auto diff final Sodium 142 Potassium 4.4 Chloride 111 H Carbon Dioxide 21.2 Anion Gap 10 BUN 17 Creatinine 1.31 H Estimated GFR 39 L POC Glucose 115 H Random Glucose 109 H Calcium 9.1 Total Bilirubin 1.0 AST 11 L ALT 14 Alkaline Phosphatase 114 Total Protein 6.5 Albumin 3.3 L Triglycerides Cholesterol LDL Cholesterol, Calc HDL Cholesterol Cholesterol/HDL Ratio Vitamin B12 TSH Thyroxine (T4) Rheumatoid Factor Scrn Rheumatoid Factor Titer LIANA Screen 01/17/18 12:53 WBC RBC Hgb Hct MCV MCH MCHC RDW Plt Count MPV Neut % (Auto) Lymph % (Auto) [place] % (Auto) Eos % (Auto) Baso % (Auto) Neut # (Auto) Lymph # (Auto) [place] # (Auto) Eos # (Auto) Baso # (Auto) WBC Differential Differential Comment Sodium Potassium Chloride Carbon Dioxide Anion Gap BUN Creatinine Estimated GFR POC Glucose 119 H Random Glucose Calcium Total Bilirubin AST ALT Alkaline Phosphatase Total Protein Albumin Triglycerides Cholesterol LDL Cholesterol, Calc HDL Cholesterol Cholesterol/HDL Ratio Vitamin B12 TSH Thyroxine (T4) Rheumatoid Factor Scrn Rheumatoid Factor Titer LIANA Screen - Imaging Head MRI 01/16/18 00:00 CONCLUSION: 1. No acute abnormality is seen. 2. Atrophy. 3. Areas of demyelination. This is nonspecific. It may be secondary to small vessel ischemic change. 4. 1 cm suspected meningioma without mass effect at the anterior right frontal region. Chest X-Ray 01/16/18 05:50 CONCLUSION: Mild to moderate cardiomegaly with no definite pulmonary edema. Head CT 01/16/18 05:50 CONCLUSION: 1. No acute hemorrhage or mass effect. 2. The study is mildly degraded by motion artifact. Neck MRA 01/16/18 07:37 CONCLUSION: 1. Unremarkable MRA of the carotids. Percent stenosis is calculated using the diameter of the stenotic region over the diameter of the normal distal internal carotid artery Head MRA 01/16/18 07:39 CONCLUSION: 1. Unremarkable MRA of the brain. Soft Tissue Ultrasound 01/17/18 00:00 CONCLUSION: 1. Edematous changes in the soft tissues of the left lower quadrant without loculated fluid. Assessment and Plan - Assessment (1) Generalized weakness Code(s): R53.1 - Weakness Status: Acute (2) Morbidly obese Code(s): E66.01 - Morbid (severe) obesity due to excess calories Status: Acute (3) Diabetes mellitus Code(s): E11.9 - Type 2 diabetes mellitus without complications Status: Acute - Plan Ms. Gupta is a pleasant 82-year-old morbidly obese female with a history of hyperlipidemia, diabetes mellitus who presents to the emergency department today due to worsening of her generalized weakness, suspected slurred speech. Neurology was consulted. Possible TIA -Radiological studies including MRI and MRA are largely unremarkable for any acute findings. -Appreciate neurology input. She is cleared for d/c from Neuro standpoint. -Physical therapy recommends home with home health. -Continue apixaban 5 mg twice daily. Also continue Crestor 10 mg nightly. CHF Pulmonary HTN Echo 45-50%, severe pulmonary HTN Discussed findings with patient who denies previous diagnosis -CHF teaching -Consult cardiology, new CHF and PHTN diagnosis. Also address anticoagulation for afib. Appreciate assistance. Atrial fibrillation -DC home medication atenolol. Started on metoprolol 25 mg twice daily, continue. -Also started patient on apixaban 5 mg twice daily. Patient reports hx of GIB on Xarelto and changed to ASA 325mg daily which she would like to continue rather than continue on Apixaban. Neuro service recommending Apixaban. Diabetes mellitus, hypoglycemic episodes Patient reports BS around 54 She is on Janumet, glipizide, Pioglitazone at -We will hold off p.o. hypoglycemic medications. Hold off using metformin due to GFR 37. -Upon discharge consider low-dose glimepiride monotherapy for diabetes mellitus. -During this hospitalization we will continue sliding scale insulin only. ?JOEL on suspected CKD -avoid nephrotoxic agents -monitor kidney function Hypertension Hyperlipidemia -We will hold off using valsartan. Started on amlodipine 5 mg daily, continue. Currently normotensive. -Continue Crestor 10 mg nightly. Left lower abdominal subq mass Patient reports hx of fall on left side in Dec with persistent left sided abdominal swelling, nontender -Abdominal soft tissue US ordered for further evaluation Full code. Apixaban. Code Status: FULL Discussed Condition With: patient, daughter Maria Esther via phone conversation, nursing staff, CM and Dr. Curran Discharge Planning: Plan for discharge to [facility] once medically cleared by cardiology.
--- NOTE | 2018-01-17 21:17 | US ---
EXAM DATE: 01/17/2018 9:09 PM EDT AGE/SEX: 82 years / Female INDICATIONS: Fluid collection. CLINICAL DATA: This is the patient's initial encounter. Patient reports that signs and symptoms have been present for 7 - 11 months and indicates a pain score of 0/10. MEDICAL/SURGICAL HISTORY: Gastroesophageal reflux disease. Hypothyroidism. Anemia. Anxiety. Ca ndidiasis. Cerebrovascular accident. Depression. Diabetes. High blood pressure. Hyperlipidemia. Hypok alemia. Magnesium deficiency. Appendectomy. Tonsillectomy. COMPARISON: No prior exams available for comparison. FINDINGS: Edematous changes are present in the soft tissues. No loculated fluid collections. No discrete mass. CONCLUSION: 1. Edematous changes in the soft tissues of the left lower quadrant without loculated fluid. Electronically signed by: Lio Stuart MD 01/17/2018 9:16 PM EDT
[2018-01-18] MEDS: Levothyroxine 88 MCG Tablet PO SCH (05:09)
--- NOTE | 2018-01-18 08:29 | P.PN ---
Subjective Interval history: Follow up on patient with ?TIA. Patient seen and examined. Patient reports she feels well. She is looking forward to going to [employer] [employer] She denies any new medical complaints. She denies any recurrence of slurred speech. She denies any headache, vision changes, new weakness, numbness or tingling. She denies fever or chills. She denies any chest pain or shortness of breath. She denies any nausea, vomiting or abdominal pain. Physical Exam Vital signs: Vital Signs 01/17/18 10:00 01/17/18 11:05 01/17/18 13:22 Temperature 97.9 F 97.6 F Pulse Rate 74 78 Respiratory Rate 18 18 Blood Pressure 158/67 H 133/65 Pulse Oximetry 95 96 01/17/18 20:00 01/18/18 00:00 01/18/18 04:00 Temperature 97.7 F 97.7 F 97.7 F Pulse Rate 74 84 75 Respiratory Rate 18 18 18 Blood Pressure 155/74 H 144/74 H 150/65 H Pulse Oximetry 94 L 94 L 92 L Intake & Output 01/17/18 01/18/18 01/18/18 18:59 06:59 18:59 Intake Total 240 / 240 242 / 242 Output Total 800 / 800 Balance -560 / -560 242 / 242 Weight 115.6 kg Intake: Oral 240 / 240 242 / 242 Output: Urine Amount (Catheter) 800 / 800 Indwelling Urethral Catheter 800 / 800 Other: # Voids 2 Date of Last Bowel Movement 01/15/18 Narrative: GENERAL: WDWN Morbidly obese elderly female INAD. Awake and alert. Sitting up in bed. Appears comfortable. SKIN: Warm and dry. Mild chronic erythema BLEs. HEAD: Atraumatic. Normocephalic. No temporal or scalp tenderness. EYES: EOMI. No injection or drainage. ENT: Nose without bleeding or purulent drainage. Airway patent. NECK: Trachea midline. No lymphadenopathy. Supple, nontender, no meningeal signs. CARDIOVASCULAR: Irregular rate and rhythm without murmurs, gallops, or rubs. No JVD. RESPIRATORY: Diminished but clear to auscultation. Breath sounds equal bilaterally. No wheezes, rales, or rhonchi. GASTROINTESTINAL: Abdomen soft, non-tender, nondistended. No guarding. + Edematous left lower abdomen with firm subcutaneous nontender mass with dimpling of thickened skin over area. MUSCULOSKELETAL: Extremities without clubbing or cyanosis. Trace edema BLEs. NEUROLOGICAL: Awake and alert. Cranial nerves II through XII intact. Able to move all extremities spontaneously. No focal neurological deficits. Normal speech. PSYCHIATRIC: Calm and pleasant. Appropriate mood and affect. Normal judgment and insight. - Urinary Catheter Management Indwelling Urethral Catheter Cath placed during this visit: yes Reason for continuing: Acute urinary retention Insertion date: 01/16/18 Insertion time: 06:39 Results - Labs CBC & Chem 7: 01/17/18 06:27 01/18/18 08:39 Laboratory Results - last 24 hr 01/16/18 01/17/18 01/17/18 13:08 06:27 09:27 Sodium 142 Potassium 4.4 Chloride 111 H Carbon Dioxide 21.2 Anion Gap 10 BUN 17 Creatinine 1.31 H Estimated GFR 39 L POC Glucose 115 H Random Glucose 109 H Calcium 9.1 Total Bilirubin 1.0 AST 11 L ALT 14 Alkaline Phosphatase 114 Total Protein 6.5 Albumin 3.3 L LIANA Screen Pos H 01/17/18 01/17/18 01/18/18 12:53 17:09 07:49 Sodium Potassium Chloride Carbon Dioxide Anion Gap BUN Creatinine Estimated GFR POC Glucose 119 H 124 H 127 H Random Glucose Calcium Total Bilirubin AST ALT Alkaline Phosphatase Total Protein Albumin LIANA Screen - Imaging Impressions Soft Tissue Ultrasound 01/17/18 00:00 CONCLUSION: 1. Edematous changes in the soft tissues of the left lower quadrant without loculated fluid. - Procedures None Assessment and Plan - Assessment (1) Generalized weakness Code(s): R53.1 - Weakness Status: Acute (2) Morbidly obese Code(s): E66.01 - Morbid (severe) obesity due to excess calories Status: Acute (3) Diabetes mellitus Code(s): E11.9 - Type 2 diabetes mellitus without complications Status: Acute (4) Diabetic hypoglycemia Code(s): E11.649 - Type 2 diabetes mellitus with hypoglycemia without coma Status: Acute (5) Pulmonary hypertension Code(s): I27.20 - Pulmonary hypertension, unspecified Status: Acute (6) Atrial fibrillation Code(s): I48.91 - Unspecified atrial fibrillation Status: Acute (7) Cardiomyopathy Code(s): I42.9 - Cardiomyopathy, unspecified Status: Acute (8) Ejection fraction < 50% Code(s): R94.30 - Abnormal result of cardiovascular function study, unspecified Status: Acute - Plan Ms. Gupta is a pleasant 82-year-old morbidly obese female with a history of hyperlipidemia, diabetes mellitus who presents to the emergency department today due to worsening of her generalized weakness, suspected slurred speech. Neurology was consulted. Possible TIA -Radiological studies including MRI and MRA are largely unremarkable for any acute findings. -Appreciate neurology input. She is cleared for d/c from Neuro standpoint. -Physical therapy recommends home with home health. -Continue apixaban 5 mg twice daily. Also continue Crestor 10 mg nightly. CHF Pulmonary HTN Echo 45-50%, severe pulmonary HTN Discussed findings with patient who denies previous diagnosis -CHF teaching -Cardiology following, appreciate assistance. Plan for f/u with Dr. Lee as outpatient. -on BB. Add Lisinopril 5mg daily. Atrial fibrillation -DC home medication atenolol. Started on metoprolol 25 mg twice daily, continue. -Also started patient on apixaban 5 mg twice daily. Patient reports hx of GIB on Xarelto and changed to ASA 325mg daily which she would like to continue rather than continue on Apixaban. Neuro service recommending Apixaban. Will decrease dose to 2.5mg BID secondary to age and kidney fxn. Diabetes mellitus, hypoglycemic episodes Patient reports BS around 56 at home She is on Janumet, glipizide, Pioglitazone at home -We will hold off p.o. hypoglycemic medications. Hold off using metformin due to GFR 37. -Upon discharge consider low-dose glimepiride monotherapy for diabetes mellitus. -During this hospitalization we will continue sliding scale insulin only. BS well controlled. JOEL on suspected CKD Creatinine improved from 1.31 to 1.16 -avoid nephrotoxic agents -monitor kidney function as indicated Hypertension Hyperlipidemia -Continue on Norvasc and add Lisinopril. Continue to monitor BP and adjust treatment accordingly. -Continue Crestor 10 mg nightly. Left lower abdominal subq mass Patient reports hx of fall on left side in Dec with persistent left sided abdominal swelling, nontender -Abd US shows edematous changes in the soft tissues of LLQ w/out loculated fluid. Recommend follow up with [facility] as outpatient. Full code. Apixaban. Code Status: FULL Discussed Condition With: patient, nursing staff, Dr. Curran Discharge Planning: Plan for discharge to [facility].
[2018-01-18] MEDS: Insulin NovoLOG Aspart Correctional Sugar Inj SQ SCH (08:46)
[2018-01-18] MEDS: Metoprolol Tartrate 25 MG Tablet PO SCH (08:47)
[2018-01-18] MEDS: Pantoprazole Sodium 20 MG DR Tablet PO SCH (08:47)
[2018-01-18] MEDS: Sertraline 50 MG Tablet PO SCH (08:47)
[2018-01-18] MEDS: amLODIPine 5 MG Tablet PO SCH (08:47)
[2018-01-18] MEDS: Senna/Docusate Sodium 8.6/50 MG Tablet PO SCH (08:47)
[2018-01-18] MEDS ORDERED: Lisinopril 5 MG Tablet PO SCH (09:00)
[2018-01-18 10:00] LABS: Calcium 9.4 mg/dL (8.5-10.1); Carbon Dioxide 19.6 meq/L (21.0-32.0); Potassium 3.9 meq/L (3.5-5.1)
--- NOTE | 2018-01-18 10:26 | P.DS ---
<Julieta Mcghee - Last Filed: 01/20/18 18:03> Date of admission: 01/16/18 08:13 Primary care physician: Virginia Carroll MD Attending physician on discharge: Leyda Curran Anticipated date of discharge: 01/18/18 Brief History from admission: Ms. Gupta is a pleasant morbidly obese 82-year-old female with a history of atrial fibrillation, hypothyroidism, hyperlipidemia, diabetes mellitus who presented to the emergency department from assisted living facility due to slurred speech. Patient also reports that she was not able to move from her bed at all. Normally she is able to transfer herself from her bed to the commode and short distance like that. Overall she has been feeling much weaker than her baseline. She denies any chest pain, shortness of breath, fever or chills. Denies any changes in bowel or bladder habits. At the time of this interview, patient reports baseline speech. Her daughter is at bedside. They both deny any focal neurological deficit. However she complains of persistent generalized weakness that is worse than her baseline. DS: Diagnosis - Discharge Diagnosis (1) Generalized weakness Status: Acute (2) Morbidly obese Status: Acute (3) Diabetes mellitus Status: Acute (4) Diabetic hypoglycemia Status: Acute (5) Pulmonary hypertension Status: Acute (6) Atrial fibrillation Status: Acute (7) Cardiomyopathy Status: Acute (8) Ejection fraction < 50% Status: Acute DS: Medications - Discharge Medications Prescriptions: amlodipine [Norvasc] 5 mg PO DAILY 30 Days #30 tab apixaban [Eliquis] 2.5 mg PO BID 30 Days #60 tab glimepiride [Amaryl] 2 mg PO QAM 30 Days #60 tab lisinopril 5 mg PO DAILY 30 Days #30 tab metoprolol tartrate 25 mg PO BID 30 Days #60 tab DS: Summary Hospital Course: Seen in consultation by Neurology and Cardiology. MRI brain showed no acute intracranial abnormality. Echo revealed EF 45-50% and severe pulmonary HTN. She was started on Eliquis for anticoagulation of atrial fibrillation. Instructed to follow up with Dr. Lee as outpatient for possible Watchman procedure. She was started on BB and ACEI. All of her home diabetic meds were held and her blood sugars remained well controlled running in the low 100s. Patient cleared for discharge from specialty services. Patient accepted at [facility]. Patient medically stable at time of discharge. Ms. Gupta is a pleasant 82-year-old morbidly obese female with a history of hyperlipidemia, diabetes mellitus who presents to the emergency department today due to worsening of her generalized weakness, suspected slurred speech. Neurology was consulted. Possible TIA -Radiological studies including MRI and MRA are largely unremarkable for any acute findings. -Appreciate neurology input. She is cleared for d/c from Neuro standpoint. -Physical therapy recommends home with home health. -Continue apixaban 5 mg twice daily. Also continue Crestor 10 mg nightly. CHF Pulmonary HTN Echo 45-50%, severe pulmonary HTN Discussed findings with patient who denies previous diagnosis -CHF teaching -Cardiology following, appreciate assistance. Plan for f/u with Dr. Lee as outpatient. -on BB. Add Lisinopril 5mg daily. Atrial fibrillation -DC home medication atenolol. Started on metoprolol 25 mg twice daily, continue. -Also started patient on apixaban 5 mg twice daily. Patient reports hx of GIB on Xarelto and changed to ASA 325mg daily which she would like to continue rather than continue on Apixaban. Neuro service recommending Apixaban. Will decrease dose to 2.5mg BID secondary to age and kidney fxn. Diabetes mellitus, hypoglycemic episodes Patient reports BS around 56 at home She is on Janumet, glipizide, Pioglitazone at home -We will hold off p.o. hypoglycemic medications. Hold off using metformin due to GFR 37. -Upon discharge consider low-dose glimepiride monotherapy for diabetes mellitus. -During this hospitalization we will continue sliding scale insulin only. BS well controlled. JOEL on suspected CKD Creatinine improved from 1.31 to 1.16 -avoid nephrotoxic agents -monitor kidney function as indicated Hypertension Hyperlipidemia -Continue on Norvasc and add Lisinopril. Continue to monitor BP and adjust treatment accordingly. -Continue Crestor 10 mg nightly. Left lower abdominal subq mass Patient reports hx of fall on left side in Dec with persistent left sided abdominal swelling, nontender -Abd US shows edematous changes in the soft tissues of LLQ w/out loculated fluid. Recommend follow up with [facility] as outpatient. Full code. Apixaban. - Time Spent with Patient Total time spent providing and/or coordinating discharge services: Greater than 30 minutes - Quality: VTE Deep Vein Thrombosis/Pulmonary Embolism Present on Admission: No Exam Vital signs: Vital Signs 01/17/18 11:05 01/17/18 13:22 01/17/18 20:00 Temperature 97.6 F 97.7 F Pulse Rate 78 74 Respiratory Rate 18 18 Blood Pressure 133/65 155/74 H Pulse Oximetry 95 96 94 L 01/18/18 00:00 01/18/18 04:00 01/18/18 08:00 Temperature 97.7 F 97.7 F 97.3 F L Pulse Rate 84 75 78 Respiratory Rate 18 18 20 Blood Pressure 144/74 H 150/65 H 168/79 H Pulse Oximetry 94 L 92 L 93 L Intake & Output 01/17/18 01/18/18 01/18/18 18:59 06:59 18:59 Intake Total 240 / 240 242 / 242 Output Total 800 / 800 Balance -560 / -560 242 / 242 Weight 115.6 kg Intake: Oral 240 / 240 242 / 242 Output: Urine Amount (Catheter) 800 / 800 Indwelling Urethral Catheter 800 / 800 Other: # Voids 2 Date of Last Bowel Movement 01/15/18 Narrative: GENERAL: WDWN Morbidly obese elderly female INAD. Awake and alert. Sitting up in bed. Appears comfortable. SKIN: Warm and dry. Mild chronic erythema BLEs. HEAD: Atraumatic. Normocephalic. No temporal or scalp tenderness. EYES: EOMI. No injection or drainage. ENT: Nose without bleeding or purulent drainage. Airway patent. NECK: Trachea midline. No lymphadenopathy. Supple, nontender, no meningeal signs. CARDIOVASCULAR: Irregular rate and rhythm without murmurs, gallops, or rubs. No JVD. RESPIRATORY: Diminished but clear to auscultation. Breath sounds equal bilaterally. No wheezes, rales, or rhonchi. GASTROINTESTINAL: Abdomen soft, non-tender, nondistended. No guarding. + Edematous left lower abdomen with firm subcutaneous nontender mass with dimpling of thickened skin over area. MUSCULOSKELETAL: Extremities without clubbing or cyanosis. Trace edema BLEs. NEUROLOGICAL: Awake and alert. Cranial nerves II through XII intact. Able to move all extremities spontaneously. No focal neurological deficits. Normal speech. PSYCHIATRIC: Calm and pleasant. Appropriate mood and affect. Normal judgment and insight. Results Procedures completed during hospitalization: None Labs on day of discharge: Labs from last 24 hours 01/18/18 01/18/18 01/17/18 08:39 07:49 17:09 Sodium 141 Potassium 3.9 Chloride 109 H Carbon Dioxide 19.6 L Anion Gap 12 BUN 16 Creatinine 1.16 H Estimated GFR 45 L POC Glucose 127 H 124 H Random Glucose 120 H Calcium 9.4 LIANA Screen LIANA Titer LIANA Pattern LIANA Interpretation 01/17/18 01/16/18 12:53 13:08 Sodium Potassium Chloride Carbon Dioxide Anion Gap BUN Creatinine Estimated GFR POC Glucose 119 H Random Glucose Calcium LIANA Screen Pos H LIANA Titer Pending LIANA Pattern Pending LIANA Interpretation Pending - Impressions ITS Impressions Head MRI 01/16/18 00:00 CONCLUSION: 1. No acute abnormality is seen. 2. Atrophy. 3. Areas of demyelination. This is nonspecific. It may be secondary to small vessel ischemic change. 4. 1 cm suspected meningioma without mass effect at the anterior right frontal region. Chest X-Ray 01/16/18 05:50 CONCLUSION: Mild to moderate cardiomegaly with no definite pulmonary edema. Head CT 01/16/18 05:50 CONCLUSION: 1. No acute hemorrhage or mass effect. 2. The study is mildly degraded by motion artifact. Neck MRA 01/16/18 07:37 CONCLUSION: 1. Unremarkable MRA of the carotids. Percent stenosis is calculated using the diameter of the stenotic region over the diameter of the normal distal internal carotid artery Head MRA 01/16/18 07:39 CONCLUSION: 1. Unremarkable MRA of the brain. Soft Tissue Ultrasound 01/17/18 00:00 CONCLUSION: 1. Edematous changes in the soft tissues of the left lower quadrant without loculated fluid. <Leyda Curran - Last Filed: 01/21/18 18:37> Date of admission: 01/16/18 08:13 Primary care physician: Virginia Carroll MD DS: Summary - Time Spent with Patient Total time spent providing and/or coordinating discharge services: Results - Impressions ITS Impressions Head MRI 01/16/18 00:00 CONCLUSION: 1. No acute abnormality is seen. 2. Atrophy. 3. Areas of demyelination. This is nonspecific. It may be secondary to small vessel ischemic change. 4. 1 cm suspected meningioma without mass effect at the anterior right frontal region. Chest X-Ray 01/16/18 05:50 CONCLUSION: Mild to moderate cardiomegaly with no definite pulmonary edema. Head CT 01/16/18 05:50 CONCLUSION: 1. No acute hemorrhage or mass effect. 2. The study is mildly degraded by motion artifact. Neck MRA 01/16/18 07:37 CONCLUSION: 1. Unremarkable MRA of the carotids. Percent stenosis is calculated using the diameter of the stenotic region over the diameter of the normal distal internal carotid artery Head MRA 01/16/18 07:39 CONCLUSION: 1. Unremarkable MRA of the brain. Soft Tissue Ultrasound 01/17/18 00:00 CONCLUSION: 1. Edematous changes in the soft tissues of the left lower quadrant without loculated fluid. Discharge Plan - Discharge Order Discharge Orders: Discharge Order (Routine); Ordered 01/18/18 Ordered By: Julieta Mcghee - Discharge Details Anticipated Discharge Date: 01/17/18 - Physicians Team Primary Care Provider: Virginia Carroll Attending Provider: Leyda Curran Other Providers: Albino Bedoya MD ; [facility] [place] ; [facility] [place], [place] ; [facility] ; Leroy Rodriguez MD
[2018-01-21 17:51] VITALS: BP 168/79; PULSE 78; RESP 20
[2018-01-21 18:07] VITALS: TEMP 97.3; O2SAT 93
== END 2018-01-18 13:23 ==
LOC: N05 05:39 → NEPE 05:39 → INTOOBSV 08:09 → NEDA 08:09 → N05 14:21
PROVIDERS: ADMIT Hospitalist; ATTEND Hospitalist